=== PATIENT | female | born 1945 | race Caucasian/White ===

== ENCOUNTER 2020-02-21 09:56 | Outpatient (CLI) | payer MEDICARE ==
--- NOTE | 2020-02-21 11:06 | MRI ---
LUMBAR SPINE MRI WITHOUT IV CONTRAST: Date: 02/21/2020 HISTORY: Low back pain with bilateral radiculopathy, worse on the left. FINDINGS: There are generalized disc desiccation changes with ligament and facet hypertrophic changes. Conus me dullaris region appears unremarkable. There is some minimal heterogeneous mixed end plate changes at L4-L5 and some minimal Type I end plate changes at L5-S1. T12-L1: Unremarkable. L1-L2: Mild disc bulging without significant canal, lateral recess, or foraminal stenosis. L2-L3: Minimal disc bulging with mild lateral recess stenosis and a left lateral annular fissure. L3-L4: Mild lateral recess stenosis and foraminal stenosis. L4-L5: Prominent disc space narrowing with prominent facet joint fluid bilaterally. Mild bilateral r ecess and moderate bilateral foraminal stenosis. L5-S1: Diffuse disc bulging without significant central canal stenosis. There is moderate to severe right foraminal stenosis secondary to somewhat more focally prominent right posterolateral protrusion . No evidence for focal bone lesion. IMPRESSION: Generalized disc degenerative disease with multilevel areas of variable severity, mostly mild lateral recess and foraminal stenosis, with some multilevel annular fissures as above. POS: RRE
== END 2020-02-21 09:57 | disposition home or self-care (01) ==
LOC: SCSRAD 09:56
PROVIDERS: ATTEND Pain Medicine Pain Medicine
DX: M54.17 Radiculopathy, lumbosacral region (principal); M48.061 Spinal stenosis, lumbar region without neurogenic claudication; M51.36 Other intervertebral disc degeneration, lumbar region; M48.07 Spinal stenosis, lumbosacral region; M43.16 Spondylolisthesis, lumbar region
CPT/HCPCS: 72148

== ENCOUNTER 2020-05-10 10:31 | Outpatient (CLI) | payer MEDICARE ==
--- NOTE | 2020-05-10 11:31 | RAD ---
Left knee 4 views: 05/10/2020 COMPARISON: None HISTORY: Pain, swelling FINDINGS: There is a small knee joint effusion. There is mild patellofemoral joint space narrowing. M oderate medial compartment narrowing and mild lateral compartment narrowing. There is osteophyte formation involving the medial femoral condyle and the medial tibial plateau. No acute fracture or di slocation. IMPRESSION: No acute fracture or dislocation. Degenerative joint disease.
== END 2020-05-10 10:32 | disposition home or self-care (01) ==
LOC: SCSRAD 10:31
PROVIDERS: ATTEND Pain Medicine Pain Medicine
DX: M25.562 Pain in left knee (principal); M17.12 Unilateral primary osteoarthritis, left knee